=== PATIENT | female | born 1995 | race Two or more races ===

== ENCOUNTER 2016-10-05 | Outpatient (CLI) | payer OTHER | END 2016-10-05 06:29 | disposition critical access hospital (66) | DX: R56.9 Unspecified convulsions (principal) | CPT/HCPCS: A0425; A0429 ==

== ENCOUNTER 2016-10-05 06:47 | Emergency (ER) | payer OTHER ==
[2016-10-05] MEDS ORDERED: levETIRAcetam 250 MG TABLET PO STA (07:53)
[2016-10-05] MEDS ORDERED: levETIRAcetam 250 MG TABLET ONE (07:55)
== END 2016-10-05 09:23 | disposition home or self-care (01) ==
DX: R56.9 Unspecified convulsions (principal); Z91.14 Patient's other noncompliance with medication regimen
CPT/HCPCS: 36415; 80053; 81003; 81025; 83690; 85025; 99284; A9270

== ENCOUNTER 2017-08-11 11:44 | Outpatient (CLI) | payer OTHER | END 2017-08-11 11:45 | disposition EMS.NT | LOC: EMS 11:44 | PROVIDERS: ATTEND Surgery | DX: R56.9 Unspecified convulsions (principal) ==